=== PATIENT | female | born 1990 | race Caucasian/White ===

== ENCOUNTER 2017-11-27 13:32 | Emergency (ER) | payer OTHER ==
[2017-11-27 13:43] VITALS: BMI 29.9
--- NOTE | 2017-11-27 15:00 | PDOC ---
Attending Attestation - Resident Resident Name: Jen Johnson - ED Attending Attestation I have performed the following: I have examined & evaluated the patient, The case was reviewed & discussed with the resident, I agree w/resident's findings & plan, Exceptions are as noted - HPI HPI: 11/27/17 14:56 27 yo F c/ no pmh s/p for full term delivery on 11/09/2017 presents with fever since yesterday. Tmax 102 degrees. Pt reports that when she was discharged she felt well. Yesterday, noted the temperature. However, denies any vaginal discharge, bleeding, dysuria States that the abdominal pain since the surgery has improved. Denies nausea, vomiting or sick contacts. Pt contacted Dr. Reynolds who directed pt to the ER - Physicial Exam PE: 11/27/17 15:01 GENERAL: Awake, alert, and fully oriented, in no acute distress HEAD: No signs of trauma EYES: EOMI, sclera anicteric, conjunctiva clear ENT: Auricles normal inspection, hearing grossly normal, nares patent NECK: Normal ROM, supple ABDOMEN: Soft No guarding, no rebound. No masses. Appropriately tender in lower abdomen s/p . Mild erythema along the site. No discharge or erythema. No wound dehiscence. EXTREMITIES: Normal range of motion, no edema. No clubbing or cyanosis. No cords, erythema, or tenderness NEUROLOGICAL: Cranial nerves II through XII grossly intact. Normal speech, normal gait SKIN: Warm, Dry, normal turgor, no rashes or lesions noted. - Medical Decision Making 11/27/17 15:03 Vital Signs Temp Pulse Resp BP Pulse Ox 98.5 F 79 16 119/72 100 11/27/17 13:41 11/27/17 13:41 11/27/17 13:41 11/27/17 13:41 11/27/17 13:41 Findings are concerning for possible endometritis. Some erythema along the wound site, there may be component of mild cellulitis. Labs, blood cultures, transvaginal ultrasound. Likely will need IV antibiotics RETAIL STORE CLERK consult. 11/27/17 15:40 Dr. Johnson had discussed the case with Dr. Reynolds. Agrees with our plan. Will touch with her with results. Pt advised regarding and dumping her breastfeed while receiving medications.
--- NOTE | 2017-11-27 15:08 | PDOC ---
History of Present Illness - General Chief Complaint: Pain Stated Complaint: FEVER (post 11/19/2017) Time Seen by Provider: 11/27/17 14:30 History Source: Patient Exam Limitations: No Limitations - History of Present Illness Initial Comments: 11/27/17 15:02 Patient is a 27yo s/p csection November 19 presenting to ED with complaints of fever that started yesterday. Fever was as high as 102. Patient has been taking ibuprofen for fever and percocet for fever/pain control. Patient is . She denies abdominal pain, N/V/D, vaginal discharge or purulent lochia, dysuria, frequency, urgency. Patient is having vaginal bleeding. Denies STDs. Patient gave at 39 weeks, was in labor for 24 hours and cervix was not dilating. Patient developed fever which is why she needed a c section. No other complications during . Surgical pathology report of placenta: focal acute chorioamnionitis PMH: none PSH: Allergies: nka social: denies 11/27/17 15:29 11/27/17 15:34 Past History - Past Medical History Allergies/Adverse Reactions: Allergies Allergy/AdvReac Type Severity Reaction Status Date / Time No Known Allergies Allergy Verified 11/27/17 13:43 Home Medications: Ambulatory Orders Vitamins (Sjr) - 1 tab PO DAILY 08/24/17 Ibuprofen [Motrin -] 600 mg PO QID PRN #28 tablet 11/22/17 Oxycodone HCl/Acetaminophen [Percocet 5-325 mg Tablet -] 1 tab PO Q4H #20 tablet MDD 6 11/22/17 Cephalexin [Keflex] 500 mg PO BID 10 Days #20 capsule 11/27/17 Anemia: No Asthma: No Cancer: No Cardiac Disorders: No CVA: No COPD: No CHF: No Dementia: No Diabetes: No GI Disorders: No Disorders: No HTN: No Hypercholesterolemia: No Liver Disease: No Seizures: No Thyroid Disease: No - Surgical History Abdominal Surgery: No Appendectomy: No Cardiac Surgery: No Cholecystectomy: No Lung Surgery: No Neurologic Surgery: No Orthopedic Surgery: No - Reproductive History (#): 0 - Suicide/Smoking/Psychosocial Hx Smoking Status: No Smoking History: Never smoked Have you smoked in the past 12 months: No Number of Cigarettes Smoked Daily: 0 Hx Alcohol Use: No Drug/Substance Use Hx: No Substance Use Type: None Hx Substance Use Treatment: No Review of Systems - Review of Systems Constitutional: Yes: Fever (as high as 102). No: Chills, Malaise, Weakness HEENTM: No: Recent change in vision, Throat Pain, Difficulty Swallowing Respiratory: No: Cough, Shortness of Breath, Wheezing Cardiac (ROS): No: Chest Pain, Lightheadedness, Palpitations ABD/GI: Yes: Other (Pain at site of incision). No: Constipated, Diarrhea, Nausea, Vomiting, Abdominal cramping : No: Burning, Dysuria, Flank Pain Musculoskeletal: No: Back Pain, Joint Pain, Muscle Pain, Other Integumentary: No: Change in Color, Lesions, Lumps Neurological: No: Headache, Numbness, Tingling, Weakness *Physical Exam - Vital Signs Last Vital Signs Temp Pulse Resp BP Pulse Ox 98.5 F 79 16 119/72 100 11/27/17 13:41 11/27/17 13:41 11/27/17 13:41 11/27/17 13:41 11/27/17 13:41 - Physical Exam General Appearance: Yes: Appropriately Dressed. No: Apparent Distress HEENT: positive: EOMI, SARAH Neck: positive: Trachea midline, Supple Respiratory/Chest: positive: Lungs Clear, Normal Breath Sounds. negative: Crackles, Rales, Stridor, Wheezing Cardiovascular: positive: Regular Rhythm, Regular Rate, S1, S2. negative: Edema , JVD, Murmur Vascular Pulses: Dorsalis-Pedis (R): 2+, Doralis-Pedis (L): 2+ Gastrointestinal/Abdominal: positive: Normal Bowel Sounds, Soft, Tenderness (to palpation in RLQ), Other (uterus palpated above pubic symphysis, below umbilicus. tender to palpation). negative: Guarding, Rebound Musculoskeletal: positive: CVA Tenderness (R) Integumentary: positive: Normal Color, Dry, Warm, Erythema (Surical scar from C- section), Other (Breast: firm, tender. No swelling, no erythema.) Neurologic: positive: sound system installer II-XII NML intact ED Treatment Course - LABORATORY CBC & Chemistry Diagram: 11/27/17 16:15 11/27/17 16:15 Medical Decision Making - Medical Decision Making 11/27/17 15:27 Patient is a 27yo s/p about 6 days ago presenting to ED because she had a fever of [address] Cat asked her to come to the ED. DDX: endometritis, surgical site infection, mastitis, UTI, pyelonephritis, infection/inflammation of spinal cord Pertinent physical exam findings: erythema overlying surgical site, RLQ and R flank tender to palpation. Uterus was palpated below umbilicus, above symphysis and was tender. CBC, Blood cultures, UA, urine cultures, cmp, lactic acid and BHcG ordered. TVUS ordered. Dr. Reynolds notified. CBC did not show leukocytosis. CMP wnl TVUS: thickening of endometrium which could be due to state or endometritis. No free fluid within pelvis. ovaries were not visualized. UA showed 1+ Leukocyte esterace and 17 WBC. Most likely cause of fever is UTI. Patient was given 1g ceftriaxone in ED and prescribed Keflex 500mg BID for [address] Mock notified and agreed with treatment plan, did not want treatment for endometritis. Patient is following up with Dr. Cat on Tuesday. Temperature recheck 98.6. Patient is afebrile, normotensive, hr wnl, no white count and not in pain. Patient deemed stable for discharge. Patient agreed with plan of discharge home. Patient was given strict return precautions and verbalized understanding. 11/27/17 19:57 *DC/Admit/Observation/Transfer Diagnosis at time of Disposition: UTI (urinary tract infection) - Discharge Dispostion Disposition: HOME Condition at time of disposition: Stable - Prescriptions Prescriptions: Cephalexin [Keflex] 500 mg PO BID 10 Days #20 capsule - Referrals Referrals: Stan Yeboah MD [Primary Care Provider] - - Patient Instructions Printed Discharge Instructions: Urinary Tract Infection Additional Instructions: You were seen here today because you had a fever of 102 within 10 days of having a . We did some blood work and an ultrasound to make sure your uterus was not infected. We did a urine test which came back positive for an infection, which is the most likely cause for your fever. We gave you a dose of an antibiotic, ceftriaxone, in the ED. I have prescribed Keflex 500mg for you to take twice a day for ten days starting tomorrow. It can be picked up from [facility]. Please follow up with Dr. Cat or your PCP within the next 2-3 days. Please come back to the Emergency Department if you start to experience: fever greater than 100.4 degrees lasting for 1 or more days, abdominal pain, swelling or tender breast tissue, vaginal discharge or heavy vaginal bleeding, or any new concerning symptom. Congratulations on the baby! Thank you - Post Discharge Activity
[2017-11-27] MEDS ORDERED: SODIUM CHLORIDE 1,000 ML IV STA (15:29)
[2017-11-27 16:36] LABS: BASO % 0.9 % (0-2.0); EOS % 2.2 % (0-4.5); HEMATOCRIT 30.8 % (32.4-45.2); HEMOGLOBIN 9.8 GM/dL (10.7-15.3); LYMPH % 22.4 % (8-40); MCH 24.6 pg (25.7-33.7); MCHC 31.7 g/dl (32.0-36.0); MEAN CELL VOLUME 77.7 fl (80-96); MEAN PLT VOLUME 7.5 fl (7.5-11.1); MONO % 10.1 % (3.8-10.2); NEUT % 64.4 % (42.8-82.8); PLATELET COUNT 580 K/MM3 (134-434); RBC 3.97 M/mm3 (3.60-5.2); RDW 17.6 % (11.6-15.6)
[2017-11-27 17:09] LABS: ALBUMIN 2.8 g/dl (3.4-5.0); ANION GAP 9 (8-16); BILIRUBIN,TOTAL 0.2 mg/dL (0.2-1.0); BLOOD UREA NITROGEN 10 mg/dL (7-18); CALCIUM 8.8 mg/dL (8.5-10.1); CHLORIDE 111 mmol/L (98-107); CO2 24 mmol/L (21-32); CREATININE 0.6 mg/dL (0.55-1.02); GLUCOSE,RANDOM 56 mg/dL (74-106); POTASSIUM 4.2 mmol/L (3.5-5.1); SGOT/AST 21 U/L (15-37); SGPT/ALT 24 U/L (12-78); SODIUM 144 mmol/L (136-145); TOT PROT 6.3 g/dl (6.4-8.2)
[2017-11-27 17:10] LABS: ALK PHOS 123 U/L (45-117)
--- NOTE | 2017-11-27 18:30 | PDOC ---
*Physical Exam - Vital Signs Last Vital Signs Temp Pulse Resp BP Pulse Ox 98.5 F 79 16 119/72 100 11/27/17 13:41 11/27/17 13:41 11/27/17 13:41 11/27/17 13:41 11/27/17 13:41 ED Treatment Course - LABORATORY CBC & Chemistry Diagram: 11/27/17 16:15 11/27/17 16:15 - ADDITIONAL ORDERS Additional order review: Laboratory Results 11/27/17 11/27/17 17:50 16:15 Sodium 144 Potassium 4.2 Chloride 111 H Carbon Dioxide 24 Anion Gap 9 BUN 10 Creatinine 0.6 Creat Clearance w eGFR > 60 Random Glucose 56 L Calcium 8.8 Total Bilirubin 0.2 AST 21 ALT 24 Alkaline Phosphatase 123 H Total Protein 6.3 L Albumin 2.8 L Beta HCG, Quant 30.4 11/27/17 16:15 RBC 3.97 MCV 77.7 L MCHC 31.7 L RDW 17.6 H MPV 7.5 D Neutrophils % 64.4 Lymphocytes % 22.4 D Monocytes % 10.1 Eosinophils % 2.2 Basophils % 0.9 - Medications Given in the ED: ED Medications Discontinued Medications Generic Name Dose Route Start Last Admin Trade Name Freq PRN Reason Stop Dose Admin Sodium Chloride 1,000 mls @ 1,000 mls/hr 11/27/17 15:29 11/27/17 17:40 Normal Saline - IV 11/27/17 16:28 1,000 mls/hr ASDIR STA Administration Medical Decision Making - Medical Decision Making 11/27/17 18:30 Beta-hCG was only 30 Pelvic ultrasound states the findings consistent with uterus versus endometritis 11/27/17 19:30 UA reveals 17 wbcs case discussed w Dr Barlow (automobile lights assembler) and the pt will be startedon KEFLEX 500mg po BID and will followup in her office *DC/Admit/Observation/Transfer Diagnosis at time of Disposition: UTI (urinary tract infection) - Discharge Dispostion Disposition: HOME Condition at time of disposition: Stable - Prescriptions Prescriptions: Cephalexin Monohydrate [Keflex -] 500 mg PO BID #20 capsule - Referrals Referrals: Stan Yeboah MD [Primary Care Provider] - - Patient Instructions Printed Discharge Instructions: Urinary Tract Infection Additional Instructions: You were seen here today because you had a fever of 102 within 10 days of having a . We did some blood work and an ultrasound to make sure your uterus was not infected. We did a urine test which came back positive for an infection, which is the most likely cause for your fever. We gave you a dose of an antibiotic, ceftriaxone, in the ED. I have prescribed Keflex 500mg for you to take twice a day for ten days starting tomorrow. It can be picked up from [facility]. Please follow up with Dr. Cat or your PCP within the next 2-3 days. Please come back to the Emergency Department if you start to experience: fever greater than 100.4 degrees lasting for 1 or more days, abdominal pain, swelling or tender breast tissue, vaginal discharge or heavy vaginal bleeding, or any new concerning symptom. Congratulations on the baby! Thank you - Post Discharge Activity
[2017-11-27 18:44] LABS: URINE APPEARANCE CLEAR; URINE BILIRUBIN NEGATIVE (<2.0 mg/dL); URINE COLOR LTYELLOW; URINE GLUCOSE (UA) NEGATIVE (NEGATIVE); URINE KETONE NEGATIVE (NEGATIVE); URINE LEUK ESTERASE 1+ (NEGATIVE); URINE NITRITE NEGATIVE (NEGATIVE); URINE PROTEIN NEGATIVE (NEGATIVE); URINE UROBILINOGEN NEGATIVE mg/dL (0.2-1.0)
[2017-11-27 18:45] LABS: EPI CELLS RARE /HPF (FEW); URINE MUCUS RARE
[2017-11-27] MEDS ORDERED: CEFTRIAXONE 1,000 MG in DEXTROSE 5%-WATER - 50 ML IVPB ONE (19:18)
[2017-11-27] MEDS ORDERED: CEFTRIAXONE 1 GM/50 ML BAG ONE (19:58)
[2017-11-27 21:04] VITALS: BP 122/74; PULSE 61; TEMP 98.3
== END 2017-11-27 21:04 | disposition home or self-care (01) ==
LOC: JER 13:32
PROC: 3E0337Z Introduction of Electrolytic and Water Balance Substance into Peripheral Vein, Percutaneous Approach (ICD-10-PCS; principal; 2017-11-27)
PROC: 3E03329 Introduction of Other Anti-infective into Peripheral Vein, Percutaneous Approach (ICD-10-PCS; 2017-11-27)
DX: O90.89 Other complications of the puerperium, not elsewhere classified (principal); O86.29 Other urinary tract infection following delivery
CPT/HCPCS: 36415; 76830-TC; 80053; 81003; 81015; 83605; 84702; 85025; 87040; 87086; 99282-25; J7030